=== PATIENT | female | born 1955 | race Caucasian/White ===

== ENCOUNTER → 2017-02-05 | Outpatient (CLI) | payer OTHER ==
[~2017-02-05] MED LIST: ALBUTEROL SULF 2.5 MG/0.5ML(0.5%) NEB SOLN ONE
== END | disposition home or self-care (01) ==
LOC: PF 08:36
DX: R07.9 Chest pain, unspecified (principal); R06.02 Shortness of breath; R05 Cough
CPT/HCPCS: 94060; 94640

== ENCOUNTER 2018-09-27 01:08 | Emergency (ER) | payer BC, OTHER ==
[~2018-09-27] VITALS: Ht 162.6 cm; Wt 68.9 kg
[2018-09-27 05:33] LABS: Basophils # (auto) 0 uL; Basophils % (auto) 0.3 % (0.0-2.0); Eosinophils # (auto) 0 uL; Hemoglobin 14.4 g/dL (12.2-16.2); Lymphocytes # (auto) 1.4 uL; Mean Corpuscular Hemoglobin 31.9 pg (28.0-32.0); Mean Corpuscular Hgb Conc. 34.4 g/dL (32.0-36.0); Mean Corpuscular Volume 92.7 fL (80.0-100.0); Monocytes # (auto) 0.4 uL; Monocytes % (auto) 3.5 % (0.0-12.0); Neutrophils # (auto) 8.8 uL; Neutrophils % (auto) 83.2 % (37.0-80.0); Platelet Count (auto) 298 10^3/uL (140-450); Red Blood Cells 4.53 10^6/uL (4.0-5.20); Red Cell Distribution Width 13.4 % (11.8-14.3); White Blood Cell 10.6 10^3/uL (4.4-10.8)
[2018-09-27 05:46] LABS: Albumin 3.3 g/dL (3.4-5.0); BUN/Creatinine Ratio 18.6; Calcium 8.9 mg/dL (8.5-10.1); Potassium 3.6 mmol/L (3.5-5.1)
[2018-09-27 05:49] LABS: Bilirubin, Total 0.3 mg/dL (0.2-1.0); Total Protein 6.9 g/dL (6.4-8.2)
[2018-09-27 07:48] LABS: Urine Bacteria NONE SEEN /hpf (None Seen); Urine Blood 2+ /uL (Negative); Urine Specific Gravity 1.011 (1.001-1.035); Urine WBC 2 /hpf (0 - 5)
[2018-09-27] MEDS ORDERED: SODIUM CHLORIDE 0.9% 1,000 ML IVB ONE (07:59)
[2018-09-27 09:13] VITALS: BP 106/59
== END 2018-09-27 09:21 | disposition home or self-care (01) ==
LOC: ER 01:08 → EDBD 01:08 → ER 09:21
DX: N20.1 Calculus of ureter (principal); N39.0 Urinary tract infection, site not specified; E46 Unspecified protein-calorie malnutrition; K21.9 Gastro-esophageal reflux disease without esophagitis; F17.210 Nicotine dependence, cigarettes, uncomplicated
CPT/HCPCS: 36415; 74176; 80053; 81001; 83036; 85025; 93005; 94761; 96360; 99284; J7030

== ENCOUNTER 2018-10-01 08:58 | Emergency (ER) | payer BC ==
[~2018-10-01] VITALS: Ht 162.6 cm; Wt 68.9 kg
[2018-10-01 09:14] LABS: Urine WBC None Seen /hpf (0 - 5)
[2018-10-01 09:17] VITALS: BP 11/62
[2018-10-01] MEDS ORDERED: SODIUM CHLORIDE 0.9% 1,000 ML IV ONE (09:30)
[2018-10-01] MEDS ORDERED: LACTULOSE 20Gm/30ML SOLN PO ONE (09:30)
[2018-10-01] MEDS ORDERED: cefTRIAXone 1GM/50ML D5W 50 ML IV ONE (09:30)
[2018-10-01] MEDS ORDERED: KETOROLAC TROMETH 30 MG/ML 1ML VIAL IV ONE (09:30)
[2018-10-01 09:46] LABS: Urine Bacteria NONE SEEN /hpf (None Seen); Urine Blood Negative /uL (Negative)
[2018-10-01] MEDS ORDERED: SODIUM CHLORIDE 0.9% 500 ML IV ONE (10:15)
[2018-10-01] MEDS ORDERED: TAMSULOSIN HYDROCHLORIDE 0.4 MG CAP PO ONE (10:30)
== END 2018-10-01 10:51 | disposition home or self-care (01) ==
LOC: ER 08:58
DX: N20.0 Calculus of kidney (principal); K59.00 Constipation, unspecified; F17.210 Nicotine dependence, cigarettes, uncomplicated
CPT/HCPCS: 81001; 96365; 96375; 99283; J0696; J1885